=== PATIENT | female | born 1965 | race Caucasian/White ===

== ENCOUNTER 2025-05-05 13:20 | Emergency (ER) | payer OTHER, SELFPAY ==
[2025-05-05 13:28] VITALS: BP 172/106
--- NOTE | 2025-05-05 14:09 | ED.GENMED ---
History of Present Illness
General
Chief Complaint: Headache
Source: patient
Exam Limitations: none
Time Seen by Provider: 05/05/25 14:09
Nursing documentation reviewed up to this point in time: agreed with
History of Present Illness
History of Present Illness:
Note:
CHIEF COMPLAINT(S)
Severe headache since this morning
HISTORY OF PRESENT ILLNESS
The patient is a 59-year-old female presenting with a severe headache that began this morning. She described the headache as unusual and intense, unlike her previous experiences. The patient tried taking Excedrin, but it did not provide relief. She
did not experience nausea or significant dizziness but was concerned about potential associated symptoms like lightheadedness, though there was no record of syncopal episodes. The patient mentioned some unusual symptoms associated with migraines she
had heard about but was uncertain if they applied to her experience. She denied any weakness or significant gastrointestinal symptoms but reported diarrhea. There was no vomiting. An IV was planned for fluid administration, and medications such as
Toradol and Reglan were considered to manage her symptoms.
REVIEW OF SYSTEMS
- Neurological: Severe headache, no confusion or syncope
- Gastrointestinal: Diarrhea, no vomiting or significant nausea
- General: No significant weakness, reports of lightheadedness
PHYSICAL EXAM
General: Alert, no acute distress.
Skin: Warm, dry.
Head: Normocephalic, atraumatic.
Neck: Supple, trachea midline.
Eye, Ears, Nose, Mouth and Throat: Oral mucosa moist.
Cardiovascular: Normal peripheral perfusion, No edema.
Respiratory: Respirations are non-labored.
Gastrointestinal: Abdomen nondistended.
Back: Normal range of motion, Normal alignment.
Musculoskeletal: Normal ROM, normal strength.
Neurological: Alert and oriented to person, place, time, and situation, No focal neurological deficit observed.
Psychiatric: Cooperative, appropriate mood & affect.
PROBLEM LIST
- Acute: Severe headache, diarrhea
PLAN
1. Initiate treatment with Toradol for headache relief.
2. Potential addition of Reglan to address associated symptoms.
3. Placement of an IV for hydration and medication administration.
4. Monitoring and further evaluation through laboratory tests and an Electrocardiogram (EKG).
5. Observation for any new or progressive symptoms.
DIFFERENTIAL DIAGNOSIS
The Differential Diagnosis includes, in no particular order and is not limited to:
1. Migraine
2. Tension-type headache
3. Cluster headache
4. Acute sinusitis
5. Hypertensive crisis
6. Medication overuse headache
7. Temporal arteritis
8. Cervicogenic headache
9. Intracranial mass
10. Subarachnoid hemorrhage
CARE-UPDATE
05/05/25 - 16:34
Anticipates atypical migraine. Head CT normal, neurologic exam unremarkable, excludes CBA suspicion. Patient stable for discharge after improvement with IV Toradol.
Disposition:
SUMMARY OF ENCOUNTER
The patient, a 59-year-old female, presented to the emergency department with a severe headache that was described as unusual and intense. She attempted relief with Excedrin, without success. She experienced diarrhea but no vomiting or nausea. The
patients neurological exam was unremarkable, and a head CT was performed, which showed no cranial hemorrhage. Emergency treatment included the administration of ketorolac (Toradol) for headache relief, and an intravenous line was placed for
hydration.
DISPOSITION
Discharge.
ASSESSMENT
The patients presentation is consistent with a diagnosis of migraine. The absence of cranial hemorrhage was supported by the normal head CT and unremarkable neurologic exam.
EMERGENCY TREATMENTS ADMINISTERED
Ketorolac (Toradol) was administered for headache relief, and intravenous fluids were initiated.
PLAN
The plan includes the administration of medications such as ketorolac for headache relief, potential addition of metoclopramide (Reglan) to manage associated symptoms, and discharge with advice to follow up with primary care and return precautions.
INDEPENDENT REVIEW OF LABS AND INTERPRETATION OF TESTS
- My independent interpretation of the head CT is that it is normal, excluding cranial hemorrhage.
PATIENT EDUCATION AND COUNSELING
The patient was informed about the migraine diagnosis and advised about return precautions if symptoms worsen or change. She was educated on the importance of following up with her primary care physician to further manage her condition.
FOLLOW-UP INSTRUCTIONS
The patient is advised to follow up with her primary care physician.
MEDICATION RECONCILIATION
Ketorolac was administered for headache relief. A prescription for metoclopramide was considered for additional symptom management.
MEDICAL DECISION MAKING
- Number and Complexity of Problems Addressed: Acute condition of severe headache with migraine-like symptoms.
- Considered Differential Diagnoses:
1. Migraine.
2. Tension-type headache.
3. Cluster headache.
4. Acute sinusitis.
5. Hypertensive crisis.
6. Medication overuse headache.
7. Temporal arteritis.
8. Cervicogenic headache.
9. Intracranial mass.
10. Subarachnoid hemorrhage.
- Data:
- Category 1: My independent interpretation of the head CT is that it is normal.
- Risk:
- Consideration of Admission/Observation: Escalation of care including admission/observation was considered given the complexity and risk of the patients presenting complaint, exam findings, and/or their underlying comorbidities. However, ultimately
I feel the patient is safe for outpatient management with close follow-up. Reasoning: Work-up reassuring, does not reveal any acute life/organ-threatening processes, patients symptoms well controlled upon reevaluation, reexamination is reassuring,
vitals are stable, patient agreeable with discharge, reliable for follow-up.
DIAGNOSIS
- Migraine, G43.909.
Phy Exam
Physical Exam
Physical Exam:
.
Course
Orders/Labs/Results
Orders:
Orders
05/05/25 13:31
CT Head W/o Iv Contrast Urgent
Comment:
Reason For Exam: headache
05/05/25 14:22
IV Insert/Care/Rem.- Treatment PRN
0.9% Sodium Chloride 1000 ml [Nss] 1,000 ml IV BOLUS
Ketorolac [Toradol] 15 mg IV NOW STA
05/05/25 14:38
Complete Blood Count/With Diff Urgent
05/05/25 15:37
Comprehensive Metabolic Panel Urgent
Abnormal Lab Results
05/05/25
14:38
Absolute Neuts (auto) 7.2 H 10^3/uL
(1.4-6.5)
Neutrophils % 78.8 H %
(42.2-75.2)
Lymphocytes % 16.1 L %
(20.5-51.1)
05/05/25 14:38
05/05/25 15:37
Vital Signs
Initial and Last Documented VS:
Initial Vital Signs
Temp Pulse Resp BP Pulse Ox
97.8 F 65 18 172/106 99
05/05/25 13:28 05/05/25 13:28 05/05/25 13:28 05/05/25 13:28 05/05/25 13:28
Last Documented Vital Signs
Temp Pulse Resp BP Pulse Ox
97.8 F 69 17 131/89 99
05/05/25 13:28 05/05/25 14:52 05/05/25 14:52 05/05/25 15:30 05/05/25 15:31
*Pulse Oximetry
SaO2: 99
Oxygen Mode of Delivery: Room air
Patient hypoxic: no
*Critical Care Note
Total Time (30-74mins, 75-104mins- exclusive of procedures): Not Applicable
ED Attending Note
-
Portions of this chart may have been created with voice recognition software.� Occasional wrong word or��sound alike� substitutions may have occurred due to the inherent limitations of voice recognition software.
Discharge Plan
Departure
Patient Disposition: Home (Routine Discharge)
Date of Disposition: 05/05/25
Time of Disposition: 16:17
Patient with high blood pressure during this ER visit?: Yes
Condition: Good
Discharge Problem:
Migraine
Instructions: Migraines (DC), BLOOD PRESSURE
Prescriptions:
No Action
simvastatin 20 mg Tablet
20 mg PO DAILY
lisinopril-hydrochlorothiazide 20-25 mg Tablet
1 tab PO DAILY
loratadine [Claritin] 10 mg Tablet
10 mg PO DAILY
escitalopram oxalate 10 mg Tablet
10 mg PO DAILY
lisinopril 20 mg Tablet
20 mg PO DAILY
lorazepam 0.5 mg Tablet
0.5 mg PO Q6HPRN PRN (Reason: anxiety)
Patient Comments:
07/01/23 filled on 02/20/23 #30
simvastatin 20 mg tablet
20 mg PO HS
lisinopril-hydrochlorothiazide 20-25 mg Tablet
1 tab PO HS
escitalopram oxalate 10 mg tablet
10 mg PO HS
cyclosporine [Restasis] 0.05 % Dropperette
1 drp BOTH EYES BID
Alvesco 80 mcg/actuation Hfa Aerosol Inhaler
1 puff INHALATION R HS
cholecalciferol (vitamin D3) [Vitamin D3] 125 mcg (5,000 unit) Tablet
125 mcg PO DAILY
coQ10 (ubiquinol) 200 mg Capsule
200 mg PO DAILY
Fiber Gummies 2 gram Tablet,Chewable
4 g PO HS
biotin 5,000 mcg Tablet,Chewable
5,000 mcg PO DAILY
Daisetta 3 690mg
690 mg PO DAILY
Patient Comments:
07/01/23 [facility]
Referrals:
Lance Miller MD [Family Provider, Family Practice] - Call in 1-3 days for appt
Interventions
Interventions:
*General Assessment Last Done: 05/05/25 13:28
*ED COVID-19 Vaccine History Last Done: 05/05/25 14:53
*ED Influenza Vaccine History Last Done: 05/05/25 14:53
Discharge Date and Time
Print Language: MOLDOVAN
[2025-05-05] MEDS: TORADOL 15 MG IV (14:41)
[2025-05-05] MEDS: NSS 1000 IV (14:45)
[2025-05-05 14:50] VITALS: BP 168/98
[2025-05-05 14:51] VITALS: BMI 26.2
[2025-05-05 14:51] LABS: Hematocrit 44.8 % (37.0-47.0); Hemoglobin 15.6 g/dL (12.0-16.0); Mean Corp Hgb Conc. 34.8 g/dL (33.0-37.0); Mean Corpuscular Volume 86.3 fL (81.0-99.0); Nucleated Red Blood Cells % 0 %; Platelet Count 280 10^3/uL (130-400); Red Cell Dist. Width 11.8 % (11.5-14.5)
[2025-05-05 14:52] VITALS: BP 168/98
[2025-05-05 15:00] VITALS: BP 150/95
[2025-05-05 15:30] VITALS: BP 131/89
[2025-05-05 16:05] LABS: ALT (SGPT) 26 U/L (0-35); AST (SGOT) 23 U/L (14-36); Albumin 4.7 g/dl (3.5-5.0); Alkaline Phosphatase 48 U/L (38-126); Blood Urea Nitrogen 14 mg/dl (7-17); Calcium 9.5 mg/dl (8.4-10.2); Carbon Dioxide 30 mmol/L (22-30); Chloride 100 mmol/L (98-107); Estimated Creatinine Clearance 89 ml/min; Glucose 93 mg/dl (70-99); Potassium 3.7 mmol/L (3.5-5.1); Sodium 136 mmol/L (135-145); Total Protein 7.1 g/dl (6.3-8.2); eGFR > 60.00
[2025-05-05 17:08] VITALS: BP 144/87
== END 2025-05-05 17:10 | disposition home or self-care (01) ==
LOC: EMR 13:20
PROVIDERS: EMERGENCY PHYSICIAN Emergency Medicine; FAMILY PHYSICIAN Family Medicine
DX: G43.909 Migraine, unspecified, not intractable, without status migrainosus (principal)
CPT/HCPCS: 99284; 96374; 96361; 70450; 80053; 85025